=== PATIENT | male | born 1965 | race Caucasian/White ===

== ENCOUNTER 2017-07-18 19:23 | Emergency (ER) | payer BC ==
[2017-07-18 20:11] VITALS: BP 116/70; PULSE 76; RESP 20; TEMP 99.3; O2SAT 97
== END 2017-07-18 20:28 | disposition home or self-care (01) ==
LOC: ED 19:23
DX: K94.13 Enterostomy malfunction (principal)
CPT/HCPCS: 99282

== ENCOUNTER 2017-08-20 20:17 | Emergency (ER) | payer BC ==
[2017-08-20 20:31] VITALS: BP 149/90; PULSE 67; RESP 16; TEMP 97.6; O2SAT 99
== END 2017-08-20 20:54 | disposition home or self-care (01) ==
LOC: ED 20:17
DX: K94.09 Other complications of colostomy (principal)
CPT/HCPCS: 99282